=== PATIENT | male | born 1975 | race Two or more races ===

== ENCOUNTER → 2024-11-01 | Emergency (ER) | payer OTHER ==
[~2024-11-01] VITALS: Ht 175.3 cm; Wt 97.5 kg
[~2024-11-01] MED LIST: DEXAMETHASONE SODIUM PHOSPHATE 4 MG/ML VIAL IM STA; NORFLEX100MG PO; ORPHENADRINE CITRATE 100 MG TABLET PO STA; TAMS0.4C PO
== END | disposition home or self-care (01) ==
LOC: ER 11:35
DX: S43.492A Other sprain of left shoulder joint, initial encounter (principal); X58.XXXA Exposure to other specified factors, initial encounter; Y93.79 Activity, other specified sports and athletics; Y92.89 Other specified places as the place of occurrence of the external cause; Y99.8 Other external cause status
CPT/HCPCS: 73030; 96372; 99283; J1100